=== PATIENT | female | born 1970 | race Two or more races ===

== ENCOUNTER 2024-02-18 17:41 | Emergency (ER) | payer OTHER ==
[~2024-02-18] VITALS: Ht 175.3 cm; Wt 10.0 kg
[2024-02-18 19:06] LABS: Urine Bacteria MANY /hpf (None Seen); Urine Blood TRACE /uL (Negative); Urine Clarity Turbid (Clear); Urine Color Dark-Orange (Yellow); Urine Mucus FEW (None Seen); Urine Protein, UAD TRACE (Negative); Urine Specific Gravity 1.008 (1.001-1.035); Urine Urobilinogen 2 mg/dL (Negative); Urine WBC 50 /hpf (0 - 5); Urine pH 5.5 (5.0-9.0)
[2024-02-18] MEDS ORDERED: CIPR-173 PO (19:36)
[2024-02-18] MEDS: CIPROFLOXACIN HCL 500 MG TAB PO ONE (21:48)
[2024-02-18 21:54] VITALS: BP 127/71; TEMP 97.4
[2024-02-18 21:55] VITALS: PULSE 76; RESP 18; O2SAT 95
== END 2024-02-18 21:58 | disposition home or self-care (01) ==
LOC: ER 17:41
DX: N39.0 Urinary tract infection, site not specified (principal); F17.210 Nicotine dependence, cigarettes, uncomplicated; Z90.49 Acquired absence of other specified parts of digestive tract
CPT/HCPCS: 81001